=== PATIENT | female | born 1995 | race Caucasian/White ===

== ENCOUNTER 2017-04-15 18:54 | Inpatient (IN) | payer OTHER ==
[~2017-04-15] VITALS: Ht 172.7 cm; Wt 81.0 kg
[2017-04-15] MEDS: LACTATED RINGERS 1,000 ML IV SCH (19:31)
[2017-04-15] MEDS: D5%-LACTATED RINGERS 1,000 ML IV SCH (19:31)
[2017-04-15] MEDS ORDERED: OXYTOCIN 30U/ 0.9% NaCL 500ML 500 ML IV ONE (19:31)
[2017-04-15] MEDS ORDERED: METOCLOPRAMIDE 5 MG/ML, 2ML IVPush PRN (20:00)
[2017-04-15] MEDS ORDERED: FENTANYL PF 100 MCG/2ML IV PRN (20:00)
[2017-04-15] MEDS ORDERED: SODIUM CITRATE/CITRIC ACID 30 ML UDC PO PRN (20:00)
[2017-04-15] MEDS: PLEASE ENTER HEIGHT AND WEIGHT MC SCH (20:00)
[2017-04-15] MEDS ORDERED: TERBUTALINE 1 MG/ML, 1ML IVPush PRN (20:00)
[2017-04-15] MEDS ORDERED: FENTANYL PF 100 MCG/2ML IVPush PRN (20:00)
[2017-04-15] MEDS ORDERED: FENTANYL/BUPIV./NS/PF 250 ML EPIDCONT ONE (20:36)
[2017-04-15] MEDS ORDERED: FENTANYL PF 100 MCG/2ML ONE (20:36)
[2017-04-15] MEDS ORDERED: BUPIVACAINE 0.25% ONE (20:37)
[2017-04-16] MEDS ORDERED: SODIUM CITRATE/CITRIC ACID 30 ML UDC ONE (01:13)
[2017-04-16] MEDS ORDERED: OXYTOCIN 30U/ 0.9% NaCL 500ML 500 ML IV PRN (01:38)
[2017-04-16] MEDS ORDERED: OXYTOCIN 30U/ 0.9% NaCL 500ML 500 ML ONE (01:43)
[2017-04-16] MEDS ORDERED: FENTANYL PF 100 MCG/2ML ONE ×2 (02:18→03:53)
[2017-04-16] MEDS ORDERED: NEWBORN KIT ONE (03:07)
[2017-04-16] MEDS: D5%-LACTATED RINGERS 1,000 ML IV SCH (03:31)
[2017-04-16] MEDS: LACTATED RINGERS 1,000 ML IV SCH (03:31)
[2017-04-16] MEDS: PLEASE ENTER HEIGHT AND WEIGHT MC SCH (04:00)
[2017-04-16] MEDS ORDERED: CALCIUM CARBONATE 500 MG TAB.CHEW ONE ×2 (04:21→09:31)
[2017-04-16] MEDS ORDERED: LACTATED RINGERS 1,000 ML INTUTE PRN (05:30)
[2017-04-16 09:45] VITALS: BP 117/63
[2017-04-16] MEDS: OXYTOCIN 30U/ 0.9% NaCL 500ML 500 ML IV SCH ×12 (10:17→23:11)
[2017-04-16] MEDS ORDERED: ACETAMINOPHEN 325 MG TABLET PO PRN ×2 (10:30)
[2017-04-16] MEDS ORDERED: HYDROcodone/APAP 5/325 TABLET PO PRN ×2 (10:30)
[2017-04-16] MEDS ORDERED: ONDANSETRON 2MG/ML, 2ML IV PRN (10:30)
[2017-04-16] MEDS ORDERED: MISOPROSTOL 200 MCG TABLET PR PRN (10:30)
[2017-04-16] MEDS: IBUPROFEN 600 MG TABLET PO PRN (10:34)
[2017-04-16 12:25] VITALS: BP 106/63
[2017-04-16] MEDS: CALCIUM CARBONATE 500 MG TAB.CHEW PO PRN ×2 (13:57→23:01)
[2017-04-16 17:29] VITALS: BP 101/69
[2017-04-16 20:00] VITALS: BP 124/59
[2017-04-16] MEDS: DOCUSATE 100 MG CAPSULE PO PRN (20:02)
[2017-04-16 23:48] VITALS: BP 124/79
[2017-04-17] MEDS: OXYTOCIN 30U/ 0.9% NaCL 500ML 500 ML IV SCH ×10 (00:37→12:05)
[2017-04-17] MEDS: IBUPROFEN 600 MG TABLET PO PRN ×2 (03:13→09:01)
[2017-04-17 03:18] VITALS: BP 123/89
[2017-04-17 07:45] VITALS: BP 111/70
[2017-04-17] MEDS ORDERED: PRENATAL VIT/IRON/FA 1 EACH TABLET PO SCH (09:00)
[2017-04-17] MEDS: DOCUSATE 100 MG CAPSULE PO PRN (09:01)
== END 2017-04-17 14:13 | disposition home or self-care (01) | DRG 775 ==
LOC: LDOP 18:54 → LDIP 19:25 → 2NW 04-16 09:38
PROVIDERS: ADMIT Pediatrics Adolescent Medicine; ATTEND Obstetrics & Gynecology
PROC: 10E0XZZ Delivery of Products of Conception, External Approach (ICD-10-PCS; principal; 2017-04-16)
PROC: 0UQMXZZ Repair Vulva, External Approach (ICD-10-PCS; 2017-04-16)
PROC: 00HU33Z Insertion of Infusion Device into Spinal Canal, Percutaneous Approach (ICD-10-PCS; 2017-04-16)
PROC: 3E0R3CZ (ICD-10-PCS; 2017-04-16)
DX: O63.0 Prolonged first stage (of labor) (principal); O69.89X0 Labor and delivery complicated by other cord complications, not applicable or unspecified; Z37.0 Single live birth; O69.1XX0 Labor and delivery complicated by cord around neck, with compression, not applicable or unspecified; Z3A.39 39 weeks gestation of pregnancy; Z88.0 Allergy status to penicillin; Z87.891 Personal history of nicotine dependence; O71.82 Other specified trauma to perineum and vulva
CPT/HCPCS: 36415; 85025; 86850; 86900; J2590; J3010